=== PATIENT | female | born 1970 | race Caucasian/White ===

== ENCOUNTER 2016-08-23 09:04 | Outpatient (CLI) | payer MEDICARE, MEDICAID ==
[~2016-08-23 09:04] MED LIST: ALBU2.5V11 MC; ALPR2TAB2 PO; BISA5TAB10 PO; BUME1TAB4 PO; CARI350T27 PO; CLIN300C97 PO; CODE1CAP21 PO; DOCU250C75 PO; DULO20CA PO; GABA800T PO; HYDR1LIQ PO; INSU100V7 SQ; LUBI24CA7 PO; MOME17SP NS; PANT40TA2 PO; RISP4TAB17 PO; SUCR1TAB PO; SULF1TAB48 PO
== END 2016-08-23 23:59 | disposition home or self-care (01) ==
LOC: WOU 09:04
PROVIDERS: ATTEND Podiatrist Foot & Ankle Surgery
DX: L03.115 Cellulitis of right lower limb (principal); L03.116 Cellulitis of left lower limb; I87.2 Venous insufficiency (chronic) (peripheral); L60.3 Nail dystrophy; M79.7 Fibromyalgia
CPT/HCPCS: G0463